=== PATIENT | female | born 1975 | race African-American/Black ===

== ENCOUNTER 2016-12-09 17:48 | Emergency (ER) ==
[2016-12-09 18:02] VITALS: BP 172/106
--- NOTE | 2016-12-09 18:13 | PROVIDER DOCUMENTATION ---
HPI-General Adult - General Chief Complaint: B/P Problems Stated Complaint: BLOOD PRESSURE Time Seen by Provider: 12/09/16 18:06 Source: patient, old records Allergies/Adverse Reactions: Patient Allergies Allergy/AdvReac Type Severity Reaction Status Date / Time No Known Allergies Allergy Verified 12/09/16 18:02 Home Medications: Home Medication List Medication Instructions Recorded Confirmed Last Taken Type Amlodipine [Norvasc] 10 mg PO DAILY #30 tablet 10/18/13 12/09/16 12/05/16 Rx Methocarbamol [Robaxin-750] 750 mg PO TID PRN PRN #30 tablet 07/11/15 12/09/16 12/09/16 Rx Naproxen [Naprosyn] 375 mg PO BID PRN PRN #30 tablet 07/11/15 12/09/16 12/09/16 Rx Lisinopril/Hydrochlorothiazide 1 each PO DAILY #30 tablet 06/06/16 12/09/16 Rx [Lisinopril-Hctz 20-25 mg Tab] Amlodipine Besylate [Norvasc] 10 mg PO DAILY #30 tablet 12/09/16 Unknown Rx Lisinopril/Hydrochlorothiazide 1 each PO DAILY #30 tablet 12/09/16 Unknown Rx [Lisinopril-Hctz 20-12.5 mg Tab] - History of Present Illness -Gen Adult Nature of Presenting Problems: This pt, who has a hx of HTN, presents today c medication request. She reports that she has no PCP and she has run out of her BP medications and just needs a refill. She states that she feels very well and has no other complaints. Location of Pain/Injury: reports: none Quality of Pain: reports: none Associated Symptoms: reports: denies symptoms Review of Systems - Adult - REVIEW OF SYSTEMS - ADULT Constitutional: reports: no symptoms reported. denies: chills, fatique Eyes: reports: no symptoms reported. denies: discharge, dry eyes, double vision , eye pain Ears, Nose, Mouth & Throat: reports: no symptoms reported. denies: ear discharge, ear pain Cardiovascular: reports: no symptoms reported. denies: chest pain, edema Respiratory: reports: no symptoms reported. denies: chronic cough, cough Gastrointestinal: reports: no symptoms reported. denies: abdominal pain, hematemesis Genitourinary: reports: no symptoms reported. denies: dysuria, discharge Musculoskeletal: reports: no symptoms reported. denies: bone pain, back pain Integumentary: reports: no symptoms reported. denies: hives, hair loss Neurological: reports: no symptoms reported. denies: ataxia, dizziness/vertigo Psychiatric: reports: no symptoms reported. denies: anxiety, anti-depressant use Endocrine: reports: no symptoms reported Hematologic/Lymphatic: reports: no symptoms reported Allergic/Immunologic: reports: no symptoms reported All Other Systems: Reviewed and Negative Past History - Adult - PAST MEDICAL HISTORY-ADULT Review of Records: reports: Old Records Reviewed, Nursing Assessment Review, Medications Reviewed, Social history reviewed & non-contributory. Major Childhood Illnesses: reports: denies history Cardiovascular: reports: HTN Respiratory: reports: denies history Gastrointestinal: reports: denies history Obstetrical/Gynecological: reports: denies history Genitourinary: reports: denies history Musculoskeletal: reports: denies history Neurological: reports: denies history Endocrine/Immune: reports: denies history Other Conditions: reports: denies history - PRIOR SURGERIES/PROCEDURES Surgical/Procedure History: reports: none - IMMUNIZATION STATUS Childhood Immunizations: See Nurse Assessment Flu Vaccine: See Nurse Assessment - FAMILY HISTORY Family History: reviewed, not pertinent Physical Exam-General - PHYSICAL EXAM-ADULT Initial Vital Signs Reviewed: Yes - CONSTITUTIONAL General Appearance: appears well, alert, no apparent distress - EYES Eyes: PERRL/EOMI, pink conjunctivae - HEAD, EARS, NOSE, MOUTH & THROAT HENMT: normocephalic/atraumatic, moist mucous membranes, normal ENT inspection - NECK Neck: non-tender, full range of motion, supple - RESPIRATORY Respiratory: chest non-tender, lungs clear, normal breath sounds, no pleuratic chest pain, no respiratory distress, no accessory muscle use - CARDIOVASCULAR Cardiovascular: normal peripheral pulses, regular rate, rhythm, no edema, no gallop, no JVD, no murmur - GASTROINTESTINAL (ABDOMEN) Abdominal Exam: normal bowel sounds, non tender, soft - MUSCULOSKELETAL Back Exam: normal inspection Extremity: normal range of motion, non-tender, normal gait, normal inspection - SKIN Integumentary: normal color, normal turgor, warm/dry - NEUROLOGIC Neurologic: grossly normal, no motor/sensory deficits - PSYCHIATRIC Psych/Mental Status: normal mood/affect, normal thought content, normal thought process, oriented x 3 Progress - PLAN OF CARE/RESULTS Progress/Plan/Lab Results: Vital Signs Temp Pulse Resp BP Pulse Ox 12/09/16 18:00 98.4 F 77 18 172/106 100 No Known Allergies Allergy (Verified 12/09/16 18:02) Amlodipine [Norvasc] 10 mg PO DAILY #30 tablet 10/18/13 Methocarbamol [Robaxin-750] 750 mg PO TID PRN PRN #30 tablet 07/11/15 Naproxen [Naprosyn] 375 mg PO BID PRN PRN #30 tablet 07/11/15 Lisinopril/Hydrochlorothiazide [Lisinopril-Hctz 20-25 mg Tab] 1 each PO DAILY # 30 tablet 06/06/16 Departure - Departure Time of Disposition Order: 18:12 DIAGNOSIS: Medication requested Hypertension Qualifiers: Hypertension type: unspecified secondary hypertension Qualified Code(s): I15.9 - Secondary hypertension, unspecified; I15 - Secondary hypertension Disposition: HOME 01 Certified Medical Emergency: Urgent Condition: Good Additional Instructions: Take medication as prescribed. Please follow up with a primary care provider. ED Follow Up Instructions: You have been treated by a care provider in the Emergency Department. These instructions are being provided to you so you can have an understanding of how to care for yourself upon discharge. Upon discharge from the Emergency Department, you are responsible for making arrangements for follow-up care by a physician of your choice. Take all prescribed medications as directed. Return to the Emergency Department immediately for any new or worsening symptoms. You may call the Physician Referral phone number at [phone] to obtain a list of Physicians who are taking new patients. Prescriptions: Lisinopril/Hydrochlorothiazide [Lisinopril-Hctz 20-12.5 mg Tab] 1 each PO DAILY #30 tablet Amlodipine Besylate [Norvasc] 10 mg PO DAILY #30 tablet Attestation - Physician/ FAUSTINO Attestation Patient care was provided by Advanced Practice Provider:: Yes Advanced Practice Provider:: [facility] Provider documentation review:: The Mid-level provider documentation, treatment plan and medical decision making was reviewed by the physician who agrees with all treatment and medical decision making by the MLP.
== END 2016-12-09 18:35 | disposition home or self-care (01) ==
LOC: P.ED 17:48
DX: I10 Essential (primary) hypertension (principal); Z79.899 Other long term (current) drug therapy; Z76.0 Encounter for issue of repeat prescription
CPT/HCPCS: 99281